=== PATIENT | male | born 1975 | race Caucasian/White ===

== ENCOUNTER 2025-05-25 20:48 | Emergency (ER) | payer BC ==
[2025-05-25] MEDS ORDERED: LORazepam 2 MG/ML VIAL ONE (22:08)
[2025-05-25] MEDS ORDERED: DIPHENHYDRAMINE 50 MG/ML VIAL ONE (22:08)
[2025-05-25 22:14] LABS: Urine Microscopic Reflex YN NO UMIC
[2025-05-25 22:22] LABS: Absolute Lymphocytes (CBC) 1.3 K/uL (0.7-4.9); Hematocrit 41.4 % (39.6-49.0); Hemoglobin 14.1 g/dL (13.6-17.9); MCH 29.1 pg (27.0-35.0); MCHC 34.0 g/dL (32.0-36.0); MCV 85.4 fL (80-100); MPV 8.7 fL (7.6-11.3); Nucleated RBC Absolute Count 0.0 (0-0); Nucleated Red Blood Cells % 0.0 % (0-0); RBC Red Blood Cell Count 4.85 M/uL (4.33-5.43); White Blood Count 11.40 thou/uL (4.3-10.9)
[2025-05-25 22:25] LABS: PT Prothrombin Time 12.9 SECONDS (10-13.0); PTT, Activated Partial Thromb 29.9 SECONDS (27.2-37.4); Protime INR 1.15
[2025-05-25 22:27] LABS: METHAMPHETAM NEGATIVE (NEGATIVE); THC Cannibis NEGATIVE (NEGATIVE)
--- NOTE | 2025-05-25 22:27 | ER ---
Nurse's Notes [facility] Name: Brennen Ashley Age: 50 yrs Sex: Male : 1975 Arrival Date: 05/25/2025 Time: 20:48 Bed 17 Private MD: Diagnosis: Suicidal ideations;Bipolar disorder, unspecified;Insomnia;Hypokalemia Presentation: 05/25 21:25 Chief complaint: Spouse and/or significant other states: PT CAME HOME FROM [facility] AFTER LACK OF SLEEP INDUCED PSYCHOSIS AND DX WITH BIPOLAR. SHE REPORTS THAT THE MEDICATION PRESCRIBED IS NOT IN STOCK AND HAS NOT SLEPT SINCE COMING COME. PT STATED TO THAT HE WAS IN HELL, HE HAD ALREADY AND SHE CAUGHT HIM WALKING TO THE OCEAN. PT REPORTED HALLUCINATIONS VISUAL AND AUDITORY TELLING HIM TO WALK INTO THE OCEAN. Coronavirus screen: At this time, the client does not indicate any symptoms associated with coronavirus-19. Ebola Screen: No symptoms or risks identified at this time. Initial Sepsis Screen: Does the patient meet any 2 criteria? No. Patient's initial sepsis screen is negative. Does the patient have a suspected source of infection? No. Patient's initial sepsis screen is negative. Risk Assessment: Do you want to hurt yourself or someone else? Patient reports no desire to harm self or others. Onset of symptoms was May 24, 2025. 21:25 Method Of Arrival: Ambulatory dd2 21:25 Acuity: TERENCE 2 dd2 Triage Assessment: 21:36 General: Appears distressed, unkempt, Behavior is cooperative, appropriate for age, dd2 anxious, crying. Pain: Denies pain. Historical: - Allergies: 21:36 No Known Allergies; dd2 - PMHx: 21:36 Hypertensive disorder; ANKYLOSING SPONDYLITIS; dd2 - Immunization history:: Adult Immunizations up to date. - Infectious Disease History:: Denies. - Social history:: Smoking status: Patient denies any tobacco usage or history of. Screenin:30 Abuse screen: Denies threats or abuse. Denies injuries from another. zm 21:30 [facility] ED Fall Risk Assessment (Adult) History of falling in the last 3 months, zm including since admission No falls in past 3 months (0 pts) Confusion or Disorientation No (0 pts) Intoxicated or Sedated No (0 pts) Impaired Gait No (0 pts) Mobility Assist Device Used No (0 pt) Altered Elimination No (0 pt) Score/Fall Risk Level 0 - 2 = Low Risk Oriented to surroundings, Maintained a safe environment, Educated pt \\T\\ family on fall prevention, incl call for assistance when getting out of bed, Assessed \\T\\ reinforced patient's understanding of fall precautions, Hourly rounding (assess needs \\T\\ fall precautionary measures) done, Used ambulatory aids as needed (educated on \\T\\ assisted with), Used gait belt as appropriate. Nutritional screening: No deficits noted. Tuberculosis screening: No symptoms or risk factors identified. Assessment: 21:23 General: Appears in no apparent distress. comfortable, Behavior is calm, cooperative. zm Pain: Denies pain. Neuro: No deficits noted. Level of Consciousness is awake, alert, obeys commands, Oriented to person, place, time, situation, Reports. 21:23 Cardiovascular: Heart tones S1 S2 present Capillary refill < 3 seconds in bilateral zm fingers Patient's skin is warm and dry. Rhythm is sinus rhythm. Respiratory: No deficits noted. Airway is patent Respiratory effort is even, unlabored, Respiratory pattern is regular, symmetrical, Breath sounds are clear bilaterally. in right upper lobe, left upper lobe, left lower lobe and right lower lobe. GI: No deficits noted. No signs and/or symptoms were reported involving the gastrointestinal system. : No deficits noted. No signs and/or symptoms were reported regarding the genitourinary system. EENT: No deficits noted. No signs and/or symptoms were reported regarding the EENT system. Derm: No deficits noted. No signs and/or symptoms reported regarding the dermatologic system. Skin is intact, is healthy with good turgor, Skin is pink, warm \\T\\ dry. Musculoskeletal: No deficits noted. No signs and/or symptoms reported regarding the musculoskeletal system. Circulation, motion, and sensation intact. Range of motion: intact in all extremities. 22:00 Reassessment: Patient appears in no apparent distress at this time. No changes from zm previously documented assessment. Patient and/or family updated on plan of care and expected duration. Pain level reassessed. Patient is alert, oriented x 3, equal unlabored respirations, skin warm/dry/pink. 23:00 Reassessment: Patient appears in no apparent distress at this time. No changes from zm previously documented assessment. Patient and/or family updated on plan of care and expected duration. Pain level reassessed. resting with eyes closed, respirations even and unlabored. 05/26 00:00 Reassessment: Patient appears in no apparent distress at this time. No changes from zm previously documented assessment. resting with eyes closed, respirations even and unlabored. 01:00 Reassessment: Patient appears in no apparent distress at this time. No changes from zm previously documented assessment. resting with eyes closed, respirations even and unlabored. 02:00 Reassessment: Patient appears in no apparent distress at this time. No changes from zm previously documented assessment. 03:00 Reassessment: Patient appears in no apparent distress at this time. Patient and/or zm family updated on plan of care and expected duration. Pain level reassessed. Patient is alert, oriented x 3, equal unlabored respirations, skin warm/dry/pink. 03:47 Reassessment: report to REX Wilson at [facility]. 04:00 Reassessment: Patient appears in no apparent distress at this time. No changes from zm previously documented assessment. Patient and/or family updated on plan of care and expected duration. Pain level reassessed. Patient is alert, oriented x 3, equal unlabored respirations, skin warm/dry/pink. Patient denies pain at this time. 05:00 Reassessment: Patient appears in no apparent distress at this time. resting with eyes zm closed, respirations even and unlabored, equal rise and fall of chest. 06:00 Reassessment: Patient appears in no apparent distress at this time. No changes from zm previously documented assessment. 07:39 Reassessment: Patient appears in no apparent distress at this time. Patient and/or db family updated on plan of care and expected duration. Pain level reassessed. Patient is alert, oriented x 3, equal unlabored respirations, skin warm/dry/pink. FAMILY IS AT BEDSIDE VISITING. Respiratory: Airway is patent Respiratory effort is even, unlabored, Respiratory pattern is regular, symmetrical. 08:00 Reassessment: Patient appears in no apparent distress at this time. Patient and/or db family updated on plan of care and expected duration. Pain level reassessed. Patient is alert, oriented x 3, equal unlabored respirations, skin warm/dry/pink. 08:04 Reassessment: [facility]RIVAL FOR PATIENT TRANSPORT TO [facility]. db Psych: 05/25 20:48 [place] Suicide Severity Screening: In the past month, have you wished you were bm8 or wished you could go to sleep and not wake up? Patient responds "No." "In the past month, have you actually had any thoughts of killing yourself?" Patient responds "no." "In your lifetime, have you ever done anything, started to do anything, or prepared to do anything to end your life?" Patient responds "no.". 20:48 Subjective: Patient's mood is hopeless, Delusions are Hallucinations are auditory, bm8 visual, Having thoughts of suicide. Objective: Patient is cooperative, sober, embarrassed Speech is soft, Affect is blunted. Interventions: Removed personal items and placed in bag. Patient placed in hospital gown. Searched person for dangerous items. Urine collected and sent for urine drug test. Belonging list filled out. Safety Checks: Personal items have been removed. Pt has been placed in a hallway bed/chair. Visitors are present. Pt denies substance abuse. Commitment: Patient will be a voluntary commitment. 21:00 Safety Checks: Personal items have been removed. Pt has been placed in a hallway bm8 bed/chair. Visitors are present. 22:00 Safety Checks: Personal items have been removed. Pt has been placed in a hallway bm8 bed/chair. Visitors are present. 23:00 Safety Checks: Personal items have been removed. Door is open. Visitors are present. No bm8 visitors are present at this time. 05/26 00:00 Safety Checks: Personal items have been removed. Door is open. No visitors are present bm8 at this time. 01:00 Safety Checks: Personal items have been removed. Door is open. No visitors are present bm8 at this time. 02:00 Safety Checks: Personal items have been removed. Door is open. No visitors are present bm8 at this time. 03:00 Safety Checks: Personal items have been removed. Door is open. No visitors are present bm8 at this time. 04:00 Safety Checks: Personal items have been removed. Door is open. No visitors are present bm8 at this time. 05:00 Safety Checks: Personal items have been removed. Door is open. No visitors are present at this time. 06:00 Safety Checks: Personal items have been removed. Door is open. No visitors are present zm at this time. Vital Signs: 05/25 21:25 Pulse 99; Resp 16; Temp 98.4; Pulse Ox 100% on R/A; Weight 94.8 kg; Pain 0/10; dd2 05/26 00:55 BP 134 / 69; Pulse 74; Resp 14; Temp 98.9(O); Pulse Ox 98% on R/A; Height 5 ft. 11 in. ;vk 07:22 BP 119 / 75; Pulse 82; Resp 16; Temp 98; Pulse Ox 100% on R/A; Pain 0/10; em1 05/25 21:25 Pain Scale: Adult dd2 07:22 Pain Scale: Adult em1 Sylmar Coma Score: 04:00 Eye Response: spontaneous(4). Motor Response: obeys commands(6). Verbal Response: zm oriented(5). Total: 15. ED Course: 05/25 20:50 Patient arrived in ED. mr 21:16 Fredo Ballesteros MD is Attending Physician. [facility] 21:23 Safety Checks: Personal items have been removed. The door is open or patient has been zm placed in a hallway bed/chair. Sitter present at this time. 21:30 Patient has correct armband on for positive identification. Bed in low position. Side zm rails up X 1. Lights dimmed. Warm blanket given. Verbal reassurance given. 21:36 Triage completed. dd2 21:36 Arm band placed on right wrist. dd2 22:00 Safety Checks: Personal items have been removed. The door is open or patient has been zm placed in a hallway bed/chair. Sitter present at this time. 22:19 Jody Lockwood, RN is Primary Nurse. 23:00 Safety Checks: Personal items have been removed. The door is open or patient has been zm placed in a hallway bed/chair. Sitter present at this time. 23:41 EKG done, by ED staff. vk 23:42 Initial lab(s) drawn, by ED staff, sent to lab. vk 23:52 Inserted saline lock: 20 gauge in right forearm, using aseptic technique. Blood vk collected. Flushed with 10 mL NS. 23:52 Urine collected: clean catch specimen, clear. vk 05/26 00:00 Safety Checks: Personal items have been removed. The door is open or patient has been zm placed in a hallway bed/chair. Sitter present at this time. 01:00 Safety Checks: Personal items have been removed. The door is open or patient has been zm placed in a hallway bed/chair. Sitter present at this time. 02:00 Safety Checks: Personal items have been removed. The door is open or patient has been zm placed in a hallway bed/chair. There are no family/friend visitors at this time Sitter present at this time. 02:45 Faxed pt clinicals to [facility] and [facility]. rv1 03:00 Safety Checks: Personal items have been removed. The door is open or patient has been zm placed in a hallway bed/chair. There are no family/friend visitors at this time Sitter present at this time. 04:00 Safety Checks: Personal items have been removed. The door is open or patient has been zm placed in a hallway bed/chair. There are no family/friend visitors at this time Sitter present at this time. 05:00 Safety Checks: Personal items have been removed. The door is open or patient has been zm placed in a hallway bed/chair. There are no family/friend visitors at this time Sitter present at this time. 06:00 Safety Checks: Personal items have been removed. The door is open or patient has been zm placed in a hallway bed/chair. There are no family/friend visitors at this time Sitter present at this time. 06:51 administrative approval given to Richa \\Dulce\\[id number]/ patient has been accepted to [facility]/ / [facility] has accepted the patient in transfer without consultation with ED provider. 07:15 Safety Checks: Personal items have been removed. The door is open or patient has been db placed in a hallway bed/chair. There are no family/friend visitors at this time Sitter present at this time. 08:05 Safety Checks: Sitter present at this time. db 08:05 Provided Education on: TRANSPORT. Pulse ox on. NIBP on. db 08:05 No provider procedures requiring assistance completed. IV discontinued, intact, db bleeding controlled, No redness/swelling at site. Administered Medications: 05/25 22:32 Drug: diphenhydrAMINE IVP 50 mg IVP once Route: IVP; Site: right forearm; zm 05/26 04:11 Follow up: Response: No adverse reaction zm 05/25 22:32 Drug: Ativan IVP 2 mg IVP once Route: IVP; Site: right forearm; zm 05/26 04:11 Follow up: Response: No adverse reaction zm 05/25 22:43 Drug: NS 0.9% IV 1000 ml IV at 1000 ml once; to be given as a bolus over 60 minutes Route: IV; Rate: 1000 ml; Site: right forearm; 05/26 07:42 Follow up: Response: No adverse reaction; IV Status: Completed infusion; IV Intake: db 1000ml 00:24 Drug: Potassium Chloride IV 20 mEq IV at per protocol once; administer over 1-2 hours bm8 Route: IV; Rate: per protocol; Site: right forearm; 02:50 Follow up: Response: No adverse reaction; IV Status: Completed infusion; IV Intake: zm 100ml 00:25 Drug: NS 0.9% with KCl IV 20 mEq/L 1000 ml IV at 150 ml/hr continuous Route: IV; Rate: bm8 150 ml/hr; Site: right forearm; 07:41 Follow up: Response: No adverse reaction; IV Status: Completed infusion; IV Intake: db 100ml 07:41 Follow up: Response: No adverse reaction; IV Status: Completed infusion; IV Intake: db 1000ml 02:54 Drug: Potassium PO Effervescent Tablet 50 mEq PO once; dissolve in 4 ounces of water or zm juice Route: PO; 04:12 Follow up: Response: No adverse reaction zm 03:15 Drug: Potassium PO Effervescent Tablet 50 mEq PO once; dissolve in 4 ounces of water or zm juice before dc Route: PO; 04:13 Follow up: Response: No adverse reaction Medication: 01:00 VIS not applicable for this client. zm Intake: 02:50 IV: 100ml; Total: 100ml. zm 07:41 IV: 100ml; Total: 200ml. db 07:41 IV: 1000ml; Total: 1200ml. db 07:42 IV: 1000ml; Total: 2200ml. db Outcome: 05/25 22:27 ER care complete, transfer ordered by MD. castaneda 05/26 08:05 Transferred by ground EMS Transfer form completed. X-rays sent w/ patient. db Condition: stable Instructed on the need for transfer, 08:05 Patient left the ED. db Addendum: 08:05 Addendum: Other PT transferred by ground EMS to [facility] on 05/26/25 \\T\\[id number]. vc1 Signatures: Fredo Ballesteros MD MD cha Rivera, Neelima, Reg Reg Rajinder Faria em1 Sheba Elena Vanessa, RN RN vc1 Jody Lockwood RN RN Rosario Hutchinson RN RN db Vee Roman rv1 Marta Peralta vk Glen Christensen RN RN bm8 ARSALAN FERRO RN RN dd2 Corrections: (The following items were deleted from the chart) 00:56 00:55 BP 134 / 69; Pulse 74bpm; Resp 14bpm; Pulse Ox 98% RA; vk vk 01:36 10 23:00 Reassessment: Patient appears in no apparent distress at this time. No zm changes from previously documented assessment. Patient and/or family updated on plan of care and expected duration. Pain level reassessed. Patient is alert, oriented x 3, equal unlabored respirations, skin warm/dry/pink. zm 05/26 01:36 00:00 Reassessment: Patient appears in no apparent distress at this time. No changes zm from previously documented assessment. Patient and/or family updated on plan of care and expected duration. Pain level reassessed. Patient is alert, oriented x 3, equal unlabored respirations, skin warm/dry/pink. zm 04:05/25 20:48 Safety Checks: Personal items have been removed. Door is open. Visitors are bm8 present. bm8 05/26 04:24 05/25 23:00 Safety Checks: Personal items have been removed. Door is open. Visitors are bm8 present. bm8 05/26 04:24 00:00 Safety Checks: Personal items have been removed. Door is open. No visitors are bm8 present at this time. bm8 : 00:00 Safety Checks: Personal items have been removed. Door is open. No visitors are bm8 present at this time. bm8 08: 08:10 Patient left the ED. db db
--- NOTE | 2025-05-25 22:27 | EDPHYS ---
Physician Documentation [facility] Name: Brennen Ashley Age: 50 yrs Sex: Male : 1975 Arrival Date: 05/25/2025 Time: 20:48 Bed 17 Private MD: ED Physician Fredo Ballesteros HPI: 05/25 22:19 This 50 yrs old Male presents to ER via Ambulatory with complaints of tonya Suicidal Ideation. 22:19 The patient presents to the emergency department with anxiety, depression, suicide tonya ideation, and the patient has a plan, drown. Onset: The symptoms/episode began/occurred 1 day(s) ago. Past psychiatric history: Prior diagnosis: bipolar disorder, depression. Associated signs and symptoms: The patient has no apparent associated signs or symptoms. Severity of symptoms: At their worst the symptoms were moderate in the emergency department the symptoms are unchanged. The patient has experienced similar episodes in the past, multiple times. Historical: - Allergies: 21:36 No Known Allergies; dd2 - PMHx: 21:36 Hypertensive disorder; ANKYLOSING SPONDYLITIS; dd2 - Immunization history:: Adult Immunizations up to date. - Infectious Disease History:: Denies. - Social history:: Smoking status: Patient denies any tobacco usage or history of. ROS: 22:21 Constitutional: Negative for fever, chills, and weight loss, Eyes: Negative for injury, tonya pain, redness, and discharge, ENT: Negative for injury, pain, and discharge, Neck: Negative for injury, pain, and swelling, Cardiovascular: Negative for chest pain, palpitations, and edema, Respiratory: Negative for shortness of breath, cough, wheezing, and pleuritic chest pain, Abdomen/GI: Negative for abdominal pain, nausea, vomiting, diarrhea, and constipation, Back: Negative for injury and pain, : Negative for injury, bleeding, discharge, and swelling, MS/Extremity: Negative for injury and deformity, Skin: Negative for injury, rash, and discoloration, Neuro: Negative for headache, weakness, numbness, tingling, and seizure, Allergy/Immunology: Negative for hives, rash, and allergies, Endocrine: Negative for neck swelling, polydipsia, polyuria, polyphagia, and marked weight changes, Hematologic/Lymphatic: Negative for swollen nodes, abnormal bleeding, and unusual bruising, 22:21 Psych: Positive for anxiety, depression, suicidal ideation, Exam: 22:21 Constitutional: This is a well developed, well nourished patient who is awake, alert, tonya and in no acute distress. Head/Face: Normocephalic, atraumatic. Eyes: Pupils equal round and reactive to light, extra-ocular motions intact. Lids and lashes normal. Conjunctiva and sclera are non-icteric and not injected. Cornea within normal limits. Periorbital areas with no swelling, redness, or edema. ENT: Nares patent. No nasal discharge, no septal abnormalities noted. Tympanic membranes are normal and external auditory canals are clear. Oropharynx with no redness, swelling, or masses, exudates, or evidence of obstruction, uvula midline. Mucous membranes moist. Neck: Trachea midline, no thyromegaly or masses palpated, and no cervical lymphadenopathy. Supple, full range of motion without nuchal rigidity, or vertebral point tenderness. No Meningismus. Chest/axilla: Normal chest wall appearance and motion. Nontender with no deformity. No lesions are appreciated. Cardiovascular: Regular rate and rhythm with a normal S1 and S2. No gallops, murmurs, or rubs. Normal PMI, no JVD. No pulse deficits. Respiratory: Lungs have equal breath sounds bilaterally, clear to auscultation and percussion. No rales, rhonchi or wheezes noted. No increased work of breathing, no retractions or nasal flaring. Abdomen/GI: Soft, non-tender, with normal bowel sounds. No distension or tympany. No guarding or rebound. No evidence of tenderness throughout. Back: No spinal tenderness. No costovertebral tenderness. Full range of motion. Male : Normal genitalia with no discharge or lesions. Skin: Warm, dry with normal turgor. Normal color with no rashes, no lesions, and no evidence of cellulitis. MS/ Extremity: Pulses equal, no cyanosis. Neurovascular intact. Full, normal range of motion., bilateral aka Neuro: Awake and alert, GCS 15, oriented to person, place, time, and situation. Cranial nerves II-XII grossly intact. Motor strength 5/5 in all extremities. Sensory grossly intact. Cerebellar exam normal. Normal gait. 22:21 Psych: Behavior/mood is pleasant, cooperative, Affect is calm, Oriented to Patient has no thoughts/intents to harm self or others. Judgement / Insight is normal. Memory is normal. Delusions/hallucinations are not present. 05/26 00:01 ECG was reviewed by the Attending Physician. [facility] Vital Signs: 05/25 21:25 Pulse 99; Resp 16; Temp 98.4; Pulse Ox 100% on R/A; Weight 94.8 kg; Pain 0/10; dd2 05/26 00:55 BP 134 / 69; Pulse 74; Resp 14; Temp 98.9(O); Pulse Ox 98% on R/A; Height 5 ft. 11 in. ;vk 07:22 BP 119 / 75; Pulse 82; Resp 16; Temp 98; Pulse Ox 100% on R/A; Pain 0/10; em1 05/25 21:25 Pain Scale: Adult dd2 07:22 Pain Scale: Adult em1 [place] Coma Score: 04:00 Eye Response: spontaneous(4). Motor Response: obeys commands(6). Verbal Response: zm oriented(5). Total: 15. MDM: 05/25 21:16 Medical Screening Exam initiated [facility] 21:30 Medical Screening Exam initiated tonya 22:22 Differential diagnosis: drug withdrawal. acute psychotic break, depression, psychosis tonya secondary to non-compliance. Differential Diagnosis altered mental status, sepsis, flu. Data reviewed: vital signs, nurses notes, lab test result(s), EKG. I considered the following discharge prescriptions or medication management in the emergency department Medications were administered in the Emergency Department. See MAR. Independent interpretation of the following test(s) in the Emergency Department EKG: See my EKG interpretation above. Test considered but Not performed: CT: no ct . Historians other than the Patient: Family Member: family well informed. Care significantly affected by the following chronic conditions: Hypertension, Obesity, hla b 27. 05/25 21:17 Order name: Acetaminophen; Complete Time: 23:27 [facility] 05/25 21:17 Order name: Basic Metabolic Panel; Complete Time: 23:27 [facility] 05/25 21:17 Order name: CBC with Diff; Complete Time: 23:12 [facility] 05/25 21:17 Order name: ETOH Level; Complete Time: 23:12 [facility] 05/25 21:17 Order name: Hepatic Function; Complete Time: 23:27 [facility] 05/25 21:17 Order name: PT-INR; Complete Time: 23:12 [facility] 05/25 21:17 Order name: Ptt, Activated; Complete Time: 23:12 [facility] 05/25 21:17 Order name: Salicylate; Complete Time: 23:12 [facility] 05/25 21:17 Order name: Urine Drug Screen; Complete Time: 23:12 [facility] 05/25 21:17 Order name: UA Rfx Sanket Cult if indicated; Complete Time: 22:19 [facility] 05/26 02:41 Order name: BMP; Complete Time: 04:36 [facility] 05/25 21:17 Order name: EKG; Complete Time: 21: [facility] 05/25 21:17 Order name: EKG - Nurse/Tech; Complete Time: 22:53 [facility] 05/25 21: Order name: IV Saline Lock; Complete Time: : [facility] 05/25 21: Order name: Labs collected and sent; Complete Time: :23 [facility] 05/25 21:17 Order name: Suicide Precautions; Complete Time: 22:23 [facility] 05/25 21:17 Order name: Suicide Screening ([place]); Complete Time: 00:38 [facility] EC/12 00:01 Rate is 91 beats/min. Rhythm is regular. QRS Mcdaniels is Normal. [place] interval is normal. QRS tonya interval is normal. QT interval is prolonged at 531 msec. No Q waves. T waves are Normal. No ST changes noted. Clinical impression: NSR w/ Non-specific ST/T Changes and No evidence of ischemia. Interpreted by me. Reviewed by me. Administered Medications: 05/25 22:32 Drug: diphenhydrAMINE IVP 50 mg IVP once Route: IVP; Site: right forearm; 05/26 04:11 Follow up: Response: No adverse reaction 05/25 22:32 Drug: Ativan IVP 2 mg IVP once Route: IVP; Site: right forearm; 05/26 04:11 Follow up: Response: No adverse reaction 05/25 22:43 Drug: NS 0.9% IV 1000 ml IV at 1000 ml once; to be given as a bolus over 60 minutes Route: IV; Rate: 1000 ml; Site: right forearm; 05/26 07:42 Follow up: Response: No adverse reaction; IV Status: Completed infusion; IV Intake: db 1000ml 00:24 Drug: Potassium Chloride IV 20 mEq IV at per protocol once; administer over 1-2 hours bm8 Route: IV; Rate: per protocol; Site: right forearm; 02:50 Follow up: Response: No adverse reaction; IV Status: Completed infusion; IV Intake: zm 100ml 00:25 Drug: NS 0.9% with KCl IV 20 mEq/L 1000 ml IV at 150 ml/hr continuous Route: IV; Rate: bm8 150 ml/hr; Site: right forearm; 07:41 Follow up: Response: No adverse reaction; IV Status: Completed infusion; IV Intake: db 100ml 07:41 Follow up: Response: No adverse reaction; IV Status: Completed infusion; IV Intake: db 1000ml 02:54 Drug: Potassium PO Effervescent Tablet 50 mEq PO once; dissolve in 4 ounces of water or zm juice Route: PO; 04:12 Follow up: Response: No adverse reaction zm 03:15 Drug: Potassium PO Effervescent Tablet 50 mEq PO once; dissolve in 4 ounces of water or zm juice before dc Route: PO; 04:13 Follow up: Response: No adverse reaction zm Disposition Summary: 05/25/25 22:27 Transfer Ordered Notes: Transfer Location: [facility] tonya Reason: Higher level of care tonya Condition: Stable tonya Problem: new tonya Symptoms: have improved tonya Accepting Physician: to psych(05/26/25 08:10) db Diagnosis - Suicidal ideations tonya - Bipolar disorder, unspecified tonya - Insomnia tonya - Hypokalemia tonya Forms: - Medication Reconciliation Form tonya - SBAR form tonya Signatures: Dispatcher [employer] EDFredo Dubon MD MD cha Calcote, Vanessa RN RN [id number] Jody Lockwood RN RN zm Benton, Danielle, RN RN db Glen Christensen RN RN [id number] ARSALAN FERRO RN RN dd2 Corrections: (The following items were deleted from the chart) 05/25 23:33 22:27 to psych tonya tonya 05/26 02:41 02:41 BASIC METABOLIC PANEL+C.LAB.BRZ ordered. [facility] 0805/25 23:33 to psych tonya db
[2025-05-25] MEDS ORDERED: NA CHLORIDE 0.9% 1,000 ML ONE (22:40)
[2025-05-25 23:19] LABS: ALT/SGPT 83 U/L (16-61); AST/SGOT 53 U/L (15-37); Albumin 4.0 g/dL (3.4-5.0); Albumin/Globulin Ratio 1.0 (1.1-1.8); Alkaline Phosphatase 42 U/L (45-117); Anion Gap 14.6 mEq/L (5.0-15.0); BUN Blood Urea Nitrogen 11 mg/dL (7-18); Bilirubin Indirect, Calculated 0.4 mg/dL (0.2-0.8); Globulin 3.9 g/dL (2.3-3.5); Glucose Level 120 mg/dL (74-106)
[2025-05-25 23:26] LABS: Potassium 2.6 mEq/L (3.5-5.1)
[2025-05-26] MEDS ORDERED: NS KCL 20MEQ 0 ML IV ONE (00:02)
[2025-05-26] MEDS ORDERED: POTASSIUM 25 MEQ EFFERV TAB ONE ×2 (00:02→02:56)
[2025-05-26] MEDS ORDERED: KCL 20 MEQ/100 mL IVPB 100 ML IV ONE (00:04)
[2025-05-26 03:46] LABS: Anion Gap 10.1 mEq/L (5.0-15.0); BUN Blood Urea Nitrogen 11.0 mg/dL (7-18); Glucose Level 99.0 mg/dL (74-106); Potassium 3.1 mEq/L (3.5-5.1)
[2025-05-26 14:39] VITALS: BP 119/75; TEMP 98; O2SAT 100
== END 2025-05-26 08:10 | disposition short-term general hospital (02) ==
LOC: ER 20:48
DX: R45.851 Suicidal ideations (principal); F31.9 Bipolar disorder, unspecified; E87.6 Hypokalemia; G47.00 Insomnia, unspecified
CPT/HCPCS: 96365; 96361; 93005; 85025; 80048 ×2; 36415; 85610; 80076; 85730; 81003; 80307; 96375; 99285; 96366; 80143; 80179; 82077; J3480; J1200; J7030